=== PATIENT | male | born 1980 | race Two or more races ===

== ENCOUNTER 2019-04-20 18:50 | Emergency (ER) | payer SELFPAY ==
[2019-04-20] MEDS ORDERED: Tetracaine HCl/PF 0.5% 4 ML Bottle ONE (19:14)
[2019-04-20] MEDS ORDERED: Tetracaine HCl/PF 0.5% 4 ML Bottle EYERT ONE (19:16)
--- NOTE | 2019-04-20 19:22 | EDM.PDOC ---
ED HPI GENERAL MEDICAL PROBLEM - General Chief Complaint: Eye Problems Stated Complaint: SICK Time Seen by Provider: 04/20/19 18:53 - History of Present Illness INITIAL COMMENTS - FREE TEXT/NARRATIVE: HISTORY AND PHYSICAL: History of present illness: Patient 39-year-old male who presents with a concern of possible foreign body right eye irritation this occurred 3 days prior. 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 Review of systems: As per history of present illness and below otherwise all systems reviewed and negative. Past medical history: As per history of present illness and as reviewed below otherwise noncontributory. Surgical history: As per history of present illness and as reviewed below otherwise noncontributory. Social history: No reported history of drug or alcohol abuse. Family history: As per history of present illness and as reviewed below otherwise noncontributory. Physical exam: HEENT: Atraumatic, normocephalic, pupils reactive, patient is some opacification representing scarring of his cornea in the right eye he is noted to have a foreign body approximately 3 o'clock position is approximately 1 mm in diameter and seemingly metallic. Anterior chamber is clear he does have some conjunctival injection noted negative for conjunctival pallor or scleral icterus , mucous membranes moist, throat clear, neck supple, nontender, trachea midline. Lungs: Clear to auscultation, breath sounds equal bilaterally, chest nontender. Heart: S1S2, regular, negative for clicks, rubs, or JVD. Abdomen: Soft, nondistended, nontender. Negative for masses or hepatosplenomegaly. Negative for costovertebral tenderness. Pelvis: Stable nontender. Genitourinary: Deferred. Rectal: Deferred. Extremities: Atraumatic, negative for cords or calf pain. Neurovascular unremarkable. Neuro: Awake, alert, oriented. Cranial nerves II through XII unremarkable. Cerebellum unremarkable. Motor and sensory unremarkable throughout. Exam nonfocal. Diagnostics: None Therapeutics: None Impression: #1 retained corneal foreign body Definitive disposition and diagnosis as appropriate pending reevaluation and review of above. Right Eye Pain Score (Numeric/FACES): 7 - Related Data Allergies Allergy/AdvReac Type Severity Reaction Status Date / Time No Known Allergies Allergy Verified 04/20/19 19:12 Home Meds: Home Meds . [No Known Home Meds] 04/20/19 [History] Past Medical History - Past Health History Medical/Surgical History: Denies Medical/Surgical History Social & Family History - Family History Family Medical History: Noncontributory - Tobacco Use Smoking Status *Q: Former Smoker Used Tobacco, but Quit: Yes Month/Year Tobacco Last Used: 2019 - Recreational Drug Use Recreational Drug Use: No ED ROS GENERAL - Review of Systems Review Of Systems: ROS reveals no pertinent complaints other than HPI. ED EXAM GENERAL W FULL EYE - Physical Exam Exam: See Below (See dictation) Course - Vital Signs Text/Narrative:: Discussed case with Dr. Lopez ophthalmology on-call who requests ophthalmic antibiotic drops and follow-up at 10 AM tomorrow for definitive evaluation and treatment patient understands and agrees Last Recorded V/S: Last Vital Signs Temp Pulse 74 04/20/19 19:10 Resp 18 04/20/19 19:10 BP 139/71 04/20/19 19:10 Pulse Ox 93 L 04/20/19 19:10 - Orders/Labs/Meds Meds: Medications Discontinued Medications Generic Name Dose Route Start Last Admin Trade Name Tanmay PRN Reason Stop Dose Admin Tetracaine HCl 1 ml 04/20/19 19:16 Tetracaine 0.5% Steri-Unit Kerry EYERT 04/20/19 19:17 ASDIRECTED ONE Tetracaine HCl Confirm 04/20/19 19:14 Tetracaine 0.5% Steri-Unit Kerry Administered 04/20/19 19:15 Dose 4 ml .ROUTE .STK-MED ONE Departure - Departure Time of Disposition: 19:21 Disposition: Home, Self-Care 01 Condition: Good Clinical Impression: Corneal foreign body, Conjunctivitis - Discharge Information Referrals: PCP,Unknown [Primary Care Provider] - Additional Instructions: The following information is given to patients seen in the emergency department who are being discharged to home. This information is to outline your options for follow-up care. We provide all patients seen in our emergency department with a follow-up referral. The need for follow-up, as well as the timing and circumstances, are variable depending upon the specifics of your emergency department visit. If you don't have a primary care physician on staff, we will provide you with a referral. We always advise you to contact your personal physician following an emergency department visit to inform them of the circumstance of the visit and for follow-up with them and/or the need for any referrals to a consulting specialist. The emergency department will also refer you to a specialist when appropriate. This referral assures that you have the opportunity for followup care with a specialist. All of these measure are taken in an effort to provide you with optimal care, which includes your followup. Under all circumstances we always encourage you to contact your private physician who remains a resource for coordinating your care. When calling for followup care, please make the office aware that this follow-up is from your recent emergency room visit. If for any reason you are refused follow-up, please contact the [facility] emergency department at and asked to speak to the emergency department charge nurse. [facility] [address] [place] [id number] Follow-up [address] Lopez tobramycin drops as prescribed return as needed as discussed
== END 2019-04-20 19:44 | disposition home or self-care (01) ==
LOC: MW.ED 18:50
DX: T15.01XA Foreign body in cornea, right eye, initial encounter (principal); H10.9 Unspecified conjunctivitis; Z87.891 Personal history of nicotine dependence; X58.XXXA Exposure to other specified factors, initial encounter
CPT/HCPCS: 99282; 99283